=== PATIENT | male | born 1990 | race Caucasian/White ===

== ENCOUNTER 2019-01-28 11:36 | Emergency (ER) | payer OTHER ==
--- NOTE | 2019-01-28 12:20 | ED Physician Chart ---
ED Chief Complaint/HPI - Patient Information Date Seen:: 01/28/19 Time Seen:: 12:00 Chief Complaint:: testicular numbness and tingling History of Present Illness:: Patient has had numbness and tingling of his testicles and inner thighs for 3 days. He probably has had a slight clear urethral discharge. Denies genital lesions. Allergies:: Allergies Allergy/AdvReac Type Severity Reaction Status Date / Time No Known Allergies Allergy Verified 01/28/19 11:49 Vitals:: Vital Signs - 8 hr 01/28/19 11:36 Temp 98.7 F HR 81 RR 16 BP 126/72 O2 Sat % 98 Historian:: Patient Review:: Nurse's Note Reviewed ED Review of Systems - Review of Systems General/Constitutional: No fever, No chills Skin: No skin lesions Head: No headache Eyes: No loss of vision ENT: No earache Neck: No neck pain Pulmonary: No SOB GI: No nausea, No vomiting, No diarrhea G/U: No dysuria Musculoskeletal: No bone or joint pain Endocrine: No polyuria, No polydipsia Psychiatric: No prior psych history Hematopoietic: No bruising Allergic/Immuno: No urticaria Neurological: No syncope ED Past Medical History - Past Medical History Past Medical History: No significant medical hx Family History: None Social History: Other (smokes marijuana and drinks about 2 beers per weekend) Surgical History: None Psychiatricy History: None Medication: None Family Medical History - Family Member Mother History Unknown: Yes ED Physical Exam - Physical Examination General/Constitutional: Awake, Well-developed, well-nourished, Alert, No distress, GCS 15, Non-toxic appearing, Ambulatory Head: Atraumatic Eyes: Lids, conjuctiva normal, PERRL, EOMI Skin: Nl inspection, No rash, No skin lesions, No ecchymosis, Well hydrated, No lymphadenopathy ENMT: External ears, nose nl, Nasal exam nl, Lips, teeth, gums nl Neck: Nontender, Full ROM w/o pain, No JVD, No nuchal rigidity, No bruit, No mass, No stridor Respiratory: Nl effort/Exclusion, Clear to Auscultation, No Wheeze/Rhonchi/Rales Cardio Vascular: RRR, No murmur, gallop, rubs, NL S1 S2 GI: No tenderness/rebounding/guarding, No organomegaly, No hernia, Normal BS's, Nondistended, No mass/bruits, No McBurney tenderness : NL external genitalia, No discharge Other comments:: Left testicle 3 1/2 x 2 1/2 cm; right testicle 3 x 2 cm; both testicles of normal firmness; penis uncircumcised; no penile lesions Extremities: No tenderness or effusion, Full ROM, normal strength in all extremities, No edema, Normal digits & nails Neuro/Psych: Alert/oriented, DTR's symmetric, Normal sensory exam, Normal motor strength, Judgement/insight normal, Mood normal, Normal gait, No focal deficits Misc: Normal back, No paraspinal tenderness ED Labs/Radiology/EKG Results - Lab Results Results: Laboratory Results Urine Source [place] 01/28/19 12:10 Urine Color YELLOW 01/28/19 12:10 Urine Clarity CLEAR (CLEAR) 01/28/19 12:10 Urine pH 7.0 (4.6 - 8.0) 01/28/19 12:10 Ur Specific [place] 1.010 (1.005-1.030) 01/28/19 12:10 Urine Protein NEGATIVE mg/dL (NEGATIVE) 01/28/19 12:10 Urine Glucose (UA) NEGATIVE mg/dL (NEGATIVE) 01/28/19 12:10 Urine Ketones NEGATIVE mg/dL (NEGATIVE) 01/28/19 12:10 Urine Blood NEGATIVE (NEGATIVE) 01/28/19 12:10 Urine Nitrate NEGATIVE (NEGATIVE) 01/28/19 12:10 Urine Bilirubin NEGATIVE (NEGATIVE) 01/28/19 12:10 Urine Urobilinogen 0.2 E.U./dL (0.2 - 1.0) 01/28/19 12:10 Ur Leukocyte Esterase NEGATIVE (NEGATIVE) 01/28/19 12:10 Urine RBC NONE SEEN /hpf (0-5) 01/28/19 12:10 Urine WBC NONE SEEN /hpf (0-5) 01/28/19 12:10 Ur Epithelial Cells RARE /lpf (FEW) 01/28/19 12:10 Urine Bacteria NONE SEEN /hpf (NONE SEEN) 01/28/19 12:10 - Radiology Results Results: Testicular ultrasound normal ED Assessment - Assessment General Assessment: Patient's symptoms appear to be of benign etiology. Non-gonococcal urethritis is the diagnosis based on the slight clear urethral discharge which the patient has. Patient to be given Vibramycin 100 mg in the emergency department before discharge and prescribed a 10 day supply to take 1 twice a day. ED Septic Shock - . Is Septic Shock (SBP<90, OR Lactate>4 mmol\L) present?: No - <6hrs of presentation: Vital Signs: Vital Signs - 8 hr 01/28/19 11:36 Temp 98.7 F HR 81 RR 16 BP 126/72 O2 Sat % 98 ED Reassessment (Disposition) - Reassessment Reassessment Condition:: Unchanged - Diagnosis Diagnosis:: Nongonococcal urethritis - Aftercare/Follow up Instructions Aftercare/Follow-Up Instructions:: Refer to Discharge Instructions - Patient Disposition Discharge/Transfer:: Home Condition at Disposition:: Stable, Unchanged
[2019-01-28 12:39] LABS: URINE SOURCE MIDSTREAM
[2019-01-28 12:41] LABS: URINE BILIRUBIN NEGATIVE (NEGATIVE); URINE BLOOD NEGATIVE (NEGATIVE); URINE GLUCOSE (UA) NEGATIVE (NEGATIVE); URINE KETONE NEGATIVE (NEGATIVE); URINE LEUKOCYTE ESTERASE NEGATIVE (NEGATIVE); URINE NITRATE NEGATIVE (NEGATIVE); URINE PROTEIN NEGATIVE (NEGATIVE); URINE UROBILINOGEN 0.2 E.U./dL (0.2 - 1.0)
[2019-01-28 12:48] LABS: URINE CLARITY CLEAR (CLEAR); URINE COLOR YELLOW; URINE MICROSCOPIC INDICATED? YES
[2019-01-28 12:50] LABS: URINE BACTERIA NONE SEEN /hpf (NONE SEEN); URINE EPITHELIAL CELLS RARE /lpf (FEW); URINE RBC NONE SEEN /hpf (0-5); URINE WBC NONE SEEN /hpf (0-5)
--- NOTE | 2019-01-28 13:10 | Diagnostic Imaging Report ---
Ultrasound scrotum HISTORY: Right and left testicular pain for one month bilateral testicular pain, numbness and tingling COMPARISON: None Technique/procedure: Sonography of the scrotum and contents was performed in multiple planes. FINDINGS: The right testicle measures 5.3 x 2.3 x 3.0 cm and demonstrates normal echogenicity with no evidence of focal lesions.The right epididymal head measures 2 cm The left testicle measures 5.3 x 2.0 x 3.1 cm and demonstrates normal echogenicity with no evidence of focal lesions. The left epididymal head measures 1.7 cm. Vascular flow to bilateral testicles are noted. No hydrocele. IMPRESSION: Vascular flow to both testicles noted. No hydrocele identified. No focal testicular lesions identified.
== END 2019-01-28 13:38 | disposition home or self-care (01) ==
LOC: ER 11:36
DX: N34.1 Nonspecific urethritis (principal)
CPT/HCPCS: 76870-TC; 81001-TC; Z7502